=== PATIENT | female | born 1975 | race Caucasian/White ===

== ENCOUNTER 2017-03-20 21:22 | Emergency (ER) | payer MEDICAID ==
[2017-03-20 21:31] VITALS: BP 162/87
[2017-03-20] MEDS ORDERED: ASPIRIN 81 MG TABLET, CHEWABLE PO ONE (21:32)
--- NOTE | 2017-03-21 07:53 | EKG REPORT ---
SEVERITY:- BORDERLINE ECG - SINUS RHYTHM PROBABLE LEFT ATRIAL ABNORMALITY : Confirmed by: Main Cardenas MD 21-Mar-2017 07:52:38
== END 2017-03-20 22:39 | disposition left against medical advice (07) ==
LOC: ER 21:22
DX: Z53.21 Procedure and treatment not carried out due to patient leaving prior to being seen by health care provider (principal)
CPT/HCPCS: 93005; 93010

== ENCOUNTER 2017-05-05 18:03 | Emergency (ER) | payer MEDICAID ==
[2017-05-05] MEDS ORDERED: HYDROCODONE/ACETAMINOPHEN 5-325 MG 6 TAB/DSPK PO PRN (19:04)
[2017-05-05] MEDS ORDERED: HYDROCODONE/ACETAMINOPHEN 5-325 MG TABLET PO ONE (19:04)
[2017-05-05] MEDS ORDERED: CLINDAMYCIN HCL 150 MG CAPSULE PO ONE (19:04)
--- NOTE | 2017-05-05 19:06 | ER Document Report ---
HPI - HPI Patient complains to provider of: mouth pain, gum swelling Onset: Yesterday Onset/Duration: Gradual Quality of pain: Throbbing Severity: Moderate Pain Level: 4 Context: Patient states she had a knot on the left upper roof of her mouth which has now spread down around her back molars. Gums are swollen and painful. Patient states she saw a dentist a few months ago and her teeth were okay. Patient does admit to eating popcorn and not sure if she got something up underneath the gum. Patient noticed her left cheek beginning to swell today. Associated Symptoms: None Exacerbated by: Food Relieved by: Denies Similar symptoms previously: No Recently seen / treated by doctor: No - ROS ROS below otherwise negative: Yes Systems Reviewed and Negative: Yes All other systems reviewed and negative - CONSTITUTIONAL Constitutional: DENIES: Fever - EENT EENT: DENIES: Congestion - NEURO Neurology: DENIES: Headache - CARDIOVASCULAR Cardiovascular: DENIES: Chest pain - RESPIRATORY Respiratory: DENIES: Trouble Breathing - GASTROINTESTINAL Gastrointestinal: DENIES: Abdominal Pain - URINARY Urinary: DENIES: Dysuria - REPRODUCTIVE Reproductive: DENIES: : - MUSCULOSKELETAL Musculoskeletal: DENIES: Extremity pain - DERM Skin Color: Normal, Ethan Skin Problems: None Past Medical History - General Information source: Patient - Social History Smoking Status: Current Every Day Smoker Cigarette use (# per day): Yes Frequency of alcohol use: None Drug Abuse: None Lives with: Family Family History: CAD, CVA, DM, Hyperlipidemia, Hypertension, Malignancy Pulmonary Medical History: Reports: Hx Asthma - LAST ATTACK 2012 Malignancy Medical History: Reports: Hx Cervical Cancer, Hx Ovarian Cancer Musculoskeltal Medical History: Reports Hx Arthritis - hands, left knee, Reports Hx Musculoskeletal Trauma Traumatic Medical History: Reports: Hx Fractures Past Surgical History: Reports: Hx Section - 3, Hx Hysterectomy, Hx Orthopedic Surgery - Immunizations Immunizations up to date: Yes Hx Diphtheria, Pertussis, Tetanus Vaccination: Yes Vertical Provider Document - CONSTITUTIONAL Agree With Documented VS: Yes Exam Limitations: No Limitations General Appearance: WD/WN, No Apparent Distress - INFECTION CONTROL TRAVEL OUTSIDE OF THE [place] IN LAST 30 DAYS: No - HEENT HEENT: Atraumatic, Normal ENT Exam, Normocephalic Mouth Diagram: 1 - swelling, no obvious decay noted. mild Erythema to gums Notes: Mild edema noted to left cheek, no erythema. - NECK Neck: Normal Inspection, Supple - RESPIRATORY Respiratory: Breath Sounds Normal, No Respiratory Distress O2 Sat by Pulse Oximetry: 100 - CARDIOVASCULAR Cardiovascular: Regular Rate, Regular Rhythm - MUSCULOSKELETAL/EXTREMETIES Musculoskeletal/Extremeties: YOKASTA MEAD - NEURO Level of Consciousness: Awake, Alert, Appropriate - DERM Integumentary: Warm, Dry Course - Vital Signs Vital signs: Temp Pulse Resp BP Pulse Ox 98.4 F 81 18 121/74 100 05/05/17 18:33 05/05/17 18:33 05/05/17 18:33 05/05/17 18:33 05/05/17 18:33 Discharge - Discharge Clinical Impression: Mouth pain, Swelling of gums Condition: Good Disposition: HOME, SELF-CARE Additional Instructions: take All meds as prescribed OTC ibuprofen 3 times a day as needed for pain floss your teeth to see if anything might be up underneath her gums causing the pain and swelling follow Up with your dentist if not better in 2-3 days earlier if worsens return as needed Prescriptions: Clindamycin HCl 300 mg PO QID #28 capsule
[2017-05-05 19:36] VITALS: BP 108/57
== END 2017-05-05 19:36 | disposition home or self-care (01) ==
LOC: ER 18:03
DX: K13.79 Other lesions of oral mucosa (principal); K06.8 Other specified disorders of gingiva and edentulous alveolar ridge; L53.9 Erythematous condition, unspecified; F17.210 Nicotine dependence, cigarettes, uncomplicated; J45.909 Unspecified asthma, uncomplicated; Z85.41 Personal history of malignant neoplasm of cervix uteri; Z85.43 Personal history of malignant neoplasm of ovary
CPT/HCPCS: 99282; J3490

== ENCOUNTER 2017-06-24 08:38 | Day surgery (SDC) | payer MEDICAID ==
[~2017-06-24 08:38] MED LIST: DIPHENHYDRAMINE HCL 50 MG/ML VIAL ONE; EPINEPHRINE INJ 1 MG/10 ML DISP.SYRIN ONE; FLUMAZENIL INJ 0.5 MG/5 ML VIAL IV ONE; GLUCAGON,HUMAN RECOMB 1 MG INJ ONE; NALOXONE HCL INJ/PF 0.4 MG/1 ML SDV ONE; ONDANSETRON HCL INJ/PF 4 MG/2 ML SDV ONE
[2017-06-24] MEDS: MIDAZOLAM 2 MG/2 ML INJ ONE ×4 (08:51→09:04)
[2017-06-24] MEDS: FENTANYL CITRATE INJ/PF 100 MCG/2 ML AMPUL ONE ×5 (08:53→09:05)
--- NOTE | 2017-06-24 09:13 | Operative Report ---
Operative Report DATE OF SURGERY: 06/24/17 Operative Report: The risks benefits and alternatives of the procedure explained to the patient in detail and informed consent is obtained.A GIF Olympus video scope was inserted into the patient's mouth and hypopharynx, the esophagus is identified intubated and insufflated, the scope was then advanced through the esophagus stomach and duodenum, retroflexion maneuver is done, the esophagus stomach and first and second portions of the duodenum examined PREOPERATIVE DIAGNOSIS: Nausea vomiting, epigastric pain POSTOPERATIVE DIAGNOSIS: Esophagitis, gastritis, duodenitis. Biopsies obtained to rule out for Helicobacter pylori OPERATION: EGD with biopsy SURGEON: RIYA CHANDLER ANESTHESIA: Moderate Sedation - 8 mg of Versed, 200 mcg of fentanyl. Conscious sedation monitoring time 30 minutes. TISSUE REMOVED OR ALTERED: Gastric specimen obtained COMPLICATIONS: None. ESTIMATED BLOOD LOSS: None. INTRAOPERATIVE FINDINGS: As described above. PROCEDURE: Patient tolerated the procedure well. No immediate postprocedure complications are noted. Patient discharged in good condition. Discharge date 06/24/2017. Discharge diet: Regular. Discharge activity: Regular. 2-3 week follow-up to discuss findings. Patient is instructed to call the office or proceed to the emergency room should there be any further problems or questions. We will wait on pathology.
[2017-06-24 10:26] VITALS: BP 97/57
== END 2017-06-24 10:20 | disposition home or self-care (01) ==
LOC: END 08:38
PROVIDERS: ATTEND Internal Medicine Gastroenterology
PROC: 0DB68ZX Excision of Stomach, Via Natural or Artificial Opening Endoscopic, Diagnostic (ICD-10-PCS; principal; 2017-06-24 09:00)
DX: K29.50 Unspecified chronic gastritis without bleeding (principal); B96.81 Helicobacter pylori [H. pylori] as the cause of diseases classified elsewhere; F17.210 Nicotine dependence, cigarettes, uncomplicated; D64.9 Anemia, unspecified; J45.909 Unspecified asthma, uncomplicated; K29.80 Duodenitis without bleeding; K21.0 Gastro-esophageal reflux disease with esophagitis; I10 Essential (primary) hypertension; Z85.41 Personal history of malignant neoplasm of cervix uteri; Z79.899 Other long term (current) drug therapy; Z88.1 Allergy status to other antibiotic agents; Z88.2 Allergy status to sulfonamides; Z88.5 Allergy status to narcotic agent; Z86.010 Personal history of colon polyps
CPT/HCPCS: 43239; 88342 ×2; 88305 ×2; J2250; J3010; J2405; J0171; J1200; J1610; J2310; J3490

== ENCOUNTER → 2017-06-25 | Outpatient (CLI) | payer MEDICAID ==
--- NOTE | 2017-06-25 12:42 | RADIOLOGY REPORT (SQ) ---
EXAM DESCRIPTION: U/S ABDOMEN COMPLETE W/O DOP COMPLETED DATE/TIME: 06/25/2017 12:09 pm REASON FOR STUDY: N/V (R11.2) R10.11 RIGHT UPPER QUADRANT PAIN R11.2 NAUSEA WITH VOMITING, UNSPECI FIED COMPARISON: CT abdomen pelvis 01/09/2016 TECHNIQUE: Dynamic and static grayscale images acquired of the abdomen and recorded on PACS. Additio nal selected color Doppler and spectral images recorded. LIMITATIONS: None. FINDINGS: PANCREAS: Midline pancreas unremarkable. LIVER: No masses. Echotexture normal. LIVER VASCULATURE: Normal directional flow of the main portal vein and hepatic veins. GALLBLADDER: No stones. Normal wall thickness. No pericholecystic fluid. ULTRASOUND-DETECTED ROBLES'S SIGN: Negative. INTRAHEPATIC DUCTS AND COMMON DUCT: CBD and intrahepatic ducts normal caliber. No filling defects. INFERIOR VENA CAVA: Normal flow. AORTA: No aneurysm. RIGHT KIDNEY: Normal size. Normal echogenicity. No solid or suspicious masses. No hydronephros is. No calcifications. LEFT KIDNEY: Normal size. Normal echogenicity. No solid or suspicious masses. No hydronephrosi s. No calcifications. SPLEEN: Normal size. No solid masses. PERITONEAL AND PLEURAL SPACES: No ascites or effusions. OTHER: No other significant finding. IMPRESSION: NORMAL ABDOMINAL ULTRASOUND. TECHNICAL DOCUMENTATION: JOB ID: [id number] [employer]- All Rights Reserved
== END ==
LOC: RAD 10:39
PROVIDERS: ATTEND Internal Medicine Gastroenterology
DX: R11.2 Nausea with vomiting, unspecified (principal)
CPT/HCPCS: 76700

== ENCOUNTER → 2017-06-29 | Outpatient (CLI) | payer MEDICAID ==
--- NOTE | 2017-06-29 13:17 | RADIOLOGY REPORT (SQ) ---
EXAM DESCRIPTION: NM HIDA SCAN WITH CCK COMPLETED DATE/TIME: 06/29/2017 1:07 pm REASON FOR STUDY: RUQ PAIN/NAUSEA WITH VOMITING, UNSPECIFIED R10.11 RIGHT UPPER QUADRANT PAIN R11.2 NAUSEA WITH VOMITING, UNSPECIFIED COMPARISON: None. RADIONUCLIDE AND DOSE: DOSAGE RADIONUCLIDE: 5 millicuries Tc99m Mebrofenin. DOSAGE CCK: 1.5 micrograms. DOSAGE MORPHINE: Not required. The route of agent administration: Intravenous TECHNIQUE: Serial imaging right upper quadrant up to 60 minutes following injection of radionuclide. CCK injected after gallbladder visualized. LIMITATIONS: None. FINDINGS: LIVER: Normal visualization without areas of photopenia. INTRAHEPATIC BILE DUCTS: Normal size and no delay in visualization. COMMON BILE DUCT: Normal without dilatation. GALLBLADDER: Normal visualization. Calculated ejection fraction of 75.3%. Normal range is greater than 35%. PHYSICAL RESPONSE: Patients presenting complaint was reproduced. OTHER: No other significant finding. IMPRESSION: NORMAL STUDY WITHOUT CYSTIC OR COMMON DUCT OBSTRUCTION. NORMAL GALLBLADDER EJECTION FRA CTION. NO EVIDENCE FOR BILIARY DYSKINESIS. TECHNICAL DOCUMENTATION: JOB ID: [id number] [employer]- All Rights Reserved
== END ==
LOC: RAD 10:37
PROVIDERS: ATTEND Internal Medicine Gastroenterology
DX: R10.11 Right upper quadrant pain (principal); R11.2 Nausea with vomiting, unspecified
CPT/HCPCS: 78227; A9537; Q9969; J2805

== ENCOUNTER 2017-07-13 11:52 | Emergency (ER) | payer MEDICAID ==
[2017-07-13] MEDS ORDERED: NORMAL SALINE 1000 ML 1,000 ML IV PRN (12:07)
--- NOTE | 2017-07-13 12:09 | ER Document Report ---
ED Medical Screen (RME) - General Chief Complaint: Abdominal Pain Stated Complaint: ABDOMINAL PAIN Time Seen by Provider: 07/13/17 12:06 Notes: Patient states that she has had 3 months of abdominal pain. She states she was recently scoped as well as had a HIDA scan. She states that she was told a HIDA scan was positive and she has been referred to a surgeon on July 17. She also states that she tested positive for H. pylori. Patient states she saw her primary care physician today, Dr. Fozia Yun. She states that Dr. Yun was concerned that she may have appendicitis and referred her to the emergency department. Patient states that she was told when she had her hysterectomy that they also took her appendix out. Patient states she is still having pain and vomiting. TRAVEL OUTSIDE OF THE [place] IN LAST 30 DAYS: No - Related Data Allergies/Adverse Reactions: amoxicillin trihydrate [From Augmentin] Allergy (Severe, Verified 07/13/17 11:58 ) Anaphylaxis codeine [Codeine] Allergy (Severe, Verified 07/13/17 11:58) Anaphylaxis oxycodone [Oxycodone] Allergy (Severe, Verified 07/13/17 11:58) Anaphylaxis Potassium Clavulanate * [From Augmentin] Allergy (Severe, Verified 07/13/17 11: 58) Anaphylaxis Sulfa (Sulfonamide Antibiotics) Allergy (Severe, Verified 07/13/17 11:58) RASH TONGUE SWELLS Past Medical History - Social History Chew tobacco use (# tins/day): No Frequency of alcohol use: None Drug Abuse: None - Past Medical History Cardiac Medical History: Denies: Hx Coronary Artery Disease, Hx Heart Attack, Hx Hypertension Pulmonary Medical History: Reports: Hx Asthma - LAST ATTACK 2011 Denies: Hx Bronchitis, Hx COPD, Hx Pneumonia Neurological Medical History: Denies: Hx Cerebrovascular Accident, Hx Seizures Renal/ Medical History: Denies: Hx Peritoneal Dialysis Malignancy Medical History: Reports: Hx Cervical Cancer, Hx Ovarian Cancer Musculoskeltal Medical History: Reports Hx Arthritis - hands, left knee, Reports Hx Musculoskeletal Trauma Traumatic Medical History: Reports: Hx Fractures Past Surgical History: Reports: Hx Section - 3, Hx Hysterectomy, Hx Orthopedic Surgery - Immunizations Immunizations up to date: Yes Hx Diphtheria, Pertussis, Tetanus Vaccination: Yes Physical Exam - Vital signs Vitals: Temp Pulse Resp BP Pulse Ox 98.2 F 95 18 136/80 H 98 07/13/17 11:55 07/13/17 11:55 07/13/17 11:55 07/13/17 11:55 07/13/17 11:55 Course - Vital Signs Vital signs: Temp Pulse Resp BP Pulse Ox 98.2 F 95 18 136/80 H 98 07/13/17 11:55 07/13/17 11:55 07/13/17 11:55 07/13/17 11:55 07/13/17 11:55
[2017-07-13 12:36] LABS: ABSOLUTE BASOPHILS # (AUTO) 0.1 10^3/uL (0.0-0.2); ABSOLUTE EOSINOPHILS # (AUTO) 0.4 10^3/uL (0.0-0.6); ABSOLUTE LYMPHOCYTES (AUTO) 2.5 10^3/uL (0.5-4.7); ABSOLUTE MONOCYTES (AUTO) 0.5 10^3/uL (0.1-1.4); ABSOLUTE NEUT (AUTO) 6.2 10^3/uL (1.7-8.2); BASOPHILS % (AUTO) 1.1 % (0-2); EOSINOPHILS % (AUTO) 4.1 % (0-6); HEMATOCRIT 43.2 % (36.0-47.0); HEMOGLOBIN 14.9 g/dL (12.0-15.5); HGB HCT DIFFERENCE 1.5; LYMPHOCYTES % (AUTO) 25.5 % (13-45); MEAN CORPUSCULAR HEMOGLOBIN 31.1 pg (27.0-33.4); MEAN CORPUSCULAR HGB CONC 34.5 g/dL (32.0-36.0); MEAN CORPUSCULAR VOLUME 90 fl (80-97); MONOCYTES % (AUTO) 5.5 % (3-13); RED BLOOD COUNT 4.79 10^6/uL (3.72-5.28); RED CELL DISTRIBUTION WIDTH 14.2 % (11.5-14.0); SEGMENTED NEUTROPHILS % (AUTO) 63.8 % (42-78); WHITE BLOOD COUNT 9.7 10^3/uL (4.0-10.5)
[2017-07-13 12:49] LABS: APPEARANCE,URINE CLEAR; BILIRUBIN,URINE NEGATIVE (NEGATIVE); GLUCOSE, URINE NEGATIVE (NEGATIVE); KETONES,URINE NEGATIVE (NEGATIVE); LEUKOCYTE ESTERASE,URINE NEGATIVE (NEGATIVE); NITRITE,URINE NEGATIVE (NEGATIVE); PROTEIN,URINE NEGATIVE (NEGATIVE); URINE SPECIFIC GRAVITY 1.004; UROBILINOGEN,URINE NEGATIVE mg/dL (<2.0)
--- NOTE | 2017-07-13 12:54 | ER Document Report ---
ED GI/ - General TRAVEL OUTSIDE OF THE [place] IN LAST 30 DAYS: No - HPI Patient complains to provider of: Abdominal pain Associated symptoms: Other - see aobve <NOE HAMMER - Last Filed: 07/13/17 12:59> <MT WHITE - Last Filed: 07/13/17 16:27> - General Chief Complaint: Abdominal Pain Stated Complaint: ABDOMINAL PAIN Time Seen by Provider: 07/13/17 12:06 Notes: Patient is a 41 year old female who presents to the ED with a 3 month history of abdominal pain and swelling. Patient is being treated for H Pylori, she has has a scope done and positive HIDA scan. Patient has been referred to a surgeon on July 17. Patient was seen by her PCP today for worsening and persistent abdominal pain and was sent to the ED with concerns for appendicitis. Patient had hysterectomy and she was told they took her appendix at that same time. Patient is suppose to have her gall bladder removed. Patient adds that she is also nauseous and has been vomiting. She states they want to put her on phenergen. After reviewing patients radiology results in her records both an ultrasound and HIDA scan were negative. (NOE HAMMER) - Related Data Allergies/Adverse Reactions: amoxicillin trihydrate [From Augmentin] Allergy (Severe, Verified 07/13/17 11:58 ) Anaphylaxis codeine [Codeine] Allergy (Severe, Verified 07/13/17 11:58) Anaphylaxis oxycodone [Oxycodone] Allergy (Severe, Verified 07/13/17 11:58) Anaphylaxis Potassium Clavulanate * [From Augmentin] Allergy (Severe, Verified 07/13/17 11: 58) Anaphylaxis Sulfa (Sulfonamide Antibiotics) Allergy (Severe, Verified 07/13/17 11:58) RASH TONGUE SWELLS Past Medical History - General Information source: Patient - Social History Smoking Status: Current Every Day Smoker Chew tobacco use (# tins/day): No Frequency of alcohol use: None Drug Abuse: None Family History: CAD, CVA, DM, Hyperlipidemia, Hypertension, Malignancy Pulmonary Medical History: Reports: Hx Asthma - LAST ATTACK 2011 Renal/ Medical History: Denies: Hx Peritoneal Dialysis Malignancy Medical History: Reports: Hx Cervical Cancer, Hx Ovarian Cancer Musculoskeltal Medical History: Reports Hx Arthritis - hands, left knee, Reports Hx Musculoskeletal Trauma Psychiatric Medical History: Reports: Hx Anxiety, Hx Depression Traumatic Medical History: Reports: Hx Fractures Past Surgical History: Reports: Hx Section - 3, Hx Hysterectomy, Hx Orthopedic Surgery - Immunizations Immunizations up to date: Yes Hx Diphtheria, Pertussis, Tetanus Vaccination: Yes <NOE HAMMER - Last Filed: 07/13/17 12:59> Review of Systems - Review of Systems Constitutional: No symptoms reported EENT: No symptoms reported Cardiovascular: No symptoms reported Respiratory: No symptoms reported Gastrointestinal: See HPI, Abdominal pain Genitourinary: No symptoms reported Female Genitourinary: No symptoms reported Musculoskeletal: No symptoms reported Skin: No symptoms reported Hematologic/Lymphatic: No symptoms reported Neurological/Psychological: No symptoms reported <CARRINGTON HAMMERANDRA - Last Filed: 07/13/17 12:59> Physical Exam - General General appearance: Alert - HEENT Head: Normocephalic, Atraumatic Eyes: Normal Extraocular movements intact: Yes Pupils: PERRL - Respiratory Respiratory status: No respiratory distress Breath sounds: Normal - Cardiovascular Rhythm: Regular Heart sounds: Normal auscultation Murmur: No - Abdominal Inspection: Normal Distension: No distension Bowel sounds: Hypoactive - markedly decreased Tenderness: Tender - RLQ - Back Back: Normal - Extremities General upper extremity: Normal inspection. No: Normal ROM General lower extremity: Normal inspection, Normal ROM - Neurological Neuro grossly intact: Yes - Psychological Associated symptoms: Normal affect, Normal mood - Skin Skin Temperature: Warm Skin Moisture: Dry Skin Color: Normal <NOE HAMMER - Last Filed: 07/13/17 12:59> - Vital signs Vitals: Temp Pulse Resp BP Pulse Ox 98.2 F 95 18 136/80 H 98 07/13/17 11:55 07/13/17 11:55 07/13/17 11:55 07/13/17 11:55 07/13/17 11:55 Course - Laboratory Result Diagrams: 07/13/17 12:00 07/13/17 12:00 <HARMANNOE - Last Filed: 07/13/17 12:59> - Laboratory Result Diagrams: 07/13/17 12:00 07/13/17 12:00 <MT WHITE - Last Filed: 07/13/17 16:27> - Re-evaluation Re-evalutation: 07/13/17 16:24 The patient's gallbladder ultrasound and HIDA scan from 2-3 weeks ago were both completely normal according to the radiologist's interpretation. The CT scan of the abdomen and pelvis today is unremarkable. The appendix is specifically seen and read as normal. (MT WHITE) - Vital Signs Vital signs: Temp Pulse Resp BP Pulse Ox 98.2 F 95 18 136/80 H 98 07/13/17 11:55 07/13/17 11:55 07/13/17 11:55 07/13/17 11:55 07/13/17 11:55 - Laboratory Laboratory results interpreted by me: 07/13/17 07/13/17 07/13/17 12:00 12:00 12:00 RDW 14.2 H Chloride 109 H Direct Bilirubin 0.5 H AST 49 H Urine Blood SMALL H Discharge <NOE HAMMER - Last Filed: 07/13/17 12:59> <MT WHITE - Last Filed: 07/13/17 16:27> - Discharge Clinical Impression: Right lower quadrant abdominal pain of unknown etiology Condition: Stable Disposition: HOME, SELF-CARE Additional Instructions: Abdominal Pain: There are many causes of abdominal pain. Pain can mean a serious problem requiring surgery (such as appendicitis). It can also be an innocent problem that goes away on its own (such as a viral infection). Often, time must pass to determine the cause of pain. The physician does not feel that hospitalization is necessary, at present. Things may change within the next 24 hours. Call the doctor or come back for re- examination if any problems occur, such as: (1) Pain that becomes more severe, steady, or becomes concentrated in one specific area. Also, pain that is more severe with movement or coughing. (2) Vomiting that persists or becomes more frequent. (3) Blood in the vomitus, urine, or bowel movements. Blood in the stool may have a tarry or black appearance. (4) Shaking chills or fever greater than 100 degrees F. (5) The abdomen becomes more distended or swollen. (6) Bowel movements cease. (7) Failure to improve as expected. Take Tylenol or ibuprofen for pain if needed. Try moist heat to the painful area of your right lower abdomen. Avoid activities such as doing sit ups that would aggravate the pain. Follow-up with your primary care provider and with the general surgeons as planned. RETURN TO THE EMERGENCY ROOM IF ANY NEW OR WORSENING SYMPTOMS. Referrals: YUNIOR GRAY PA-C [Primary Care Provider] - Follow up as needed Marcy Attestation: 07/13/17 16:27 I personally performed the services described in the documentation, reviewed and edited the documentation which was dictated to the scribe in my presence, and it accurately records my words and actions. (MT WHITE) Scribe Documentation - Scribe Written by Marcy:: marcy Castro, 07/13/2017, [id number] acting as scribe for :: Dmitriy <NOE HAMMER - Last Filed: 07/13/17 12:59>
[2017-07-13 13:02] LABS: ALANINE AMINOTRANSFERASE 18 U/L (9-52); ALBUMIN 4.5 g/dL (3.5-5.0); ALKALINE PHOSPHATASE 90 U/L (38-126); ANION GAP 10 (5-19); ASPARTATE AMINO TRANSFERASE 49 U/L (14-36); BILIRUBIN,DIRECT 0.5 mg/dL (0.0-0.4); BILIRUBIN,TOTAL 0.5 mg/dL (0.2-1.3); BLOOD UREA NITROGEN 11 mg/dL (7-20); CALCIUM 9.9 mg/dL (8.4-10.2); CARBON DIOXIDE 23 mmol/L (22-30); CHLORIDE 109 mmol/L (98-107); CREATININE RESULT 0.73 mg/dL (0.52-1.25); GLUCOSE 84 mg/dL (75-110); LIPASE 118.4 U/L (23-300); SODIUM 141.6 mmol/L (137-145); TOTAL PROTEIN 7.6 g/dL (6.3-8.2)
--- NOTE | 2017-07-13 16:11 | RADIOLOGY REPORT (SQ) ---
EXAM DESCRIPTION: CT ABD/PELVIS WITH IV ORAL COMPLETED DATE/TIME: 07/13/2017 4:01 pm REASON FOR STUDY: RLQ abd pain s/p ROCIO, +Hpylori COMPARISON: 01/09/2016 TECHNIQUE: CT scan of the abdomen and pelvis performed with intravenous and oral contrast using ross oswaldo scanning technique with dynamic intravenous contrast injection. Images reviewed with lung, soft t issue, and bone windows. Reconstructed coronal and sagittal MPR images reviewed. Delayed images for e valuation of the urinary system also acquired. All images stored on PACS. All CT scanners at this facility use dose modulation, iterative reconstruction, and/or weight based d osing when appropriate to reduce radiation dose to as low as reasonably achievable (ALARA). [facility]: Dose Right [facility]: CareDose [facility]: Dose Right [facility]: Teradose 4D [facility]: AudioMicro CONTRAST TYPE AND DOSE: contrast/concentration: Isovue 370.00 mg/ml; Total Contrast Delivered: 79.0 ml; Total Saline Delivered: 67.6 ml RENAL FUNCTION: GFR > 60. RADIATION DOSE: Up-to-date CT equipment and radiation dose reduction techniques were employed. CTDIv ol: NaN - NaN mGy. DLP: 0 mGy-cm.. LIMITATIONS: None. FINDINGS: LOWER CHEST: No significant findings. No nodules or infiltrates. LIVER: Normal size. Mild steatosis. No masses. No dilated ducts. SPLEEN: Normal size. No focal lesions. PANCREAS: No masses. No significant calcifications. No adjacent inflammation or peripancreatic fluid collections. Pancreatic duct not dilated. GALLBLADDER: No identified stones by CT criteria. No inflammatory changes to suggest cholecystitis. ADRENAL GLANDS: No significant masses or asymmetry. RIGHT KIDNEY AND URETER: No solid masses. No significant calcification. No hydronephrosis or hydroure ter. LEFT KIDNEY AND URETER: No solid masses. No significant calcification. No hydronephrosis or hydrouret er. AORTA AND VESSELS: No aneurysm. No dissection. Renal arteries, SMA, celiac without stenosis. RETROPERITONEUM: No retroperitoneal adenopathy, hemorrhage or masses. BOWEL AND PERITONEAL CAVITY: No obstruction. No visualized masses. No free fluid. No inflammatory ch anges or thickening of bowel wall. APPENDIX: Normal. PELVIS: No significant masses. Normal bladder. No free fluid. ABDOMINAL WALL: No significant hernia. BONES: No significant or acute findings. OTHER: No other significant finding. IMPRESSION: No acute abnormality in the abdomen or pelvis. TECHNICAL DOCUMENTATION: JOB ID: [id number] Quality ID # [id number]: Final reports with documentation of one or more dose reduction techniques (e.g., Au tomated exposure control, adjustment of the mA and/or kV according to patient size, use of iterative reconstruction technique) 2010 [employer]- All Rights Reserved
[2017-07-13 16:37] VITALS: BP 109/51
== END 2017-07-13 16:49 | disposition home or self-care (01) ==
LOC: ER 11:52
DX: R10.31 Right lower quadrant pain (principal); A04.8 Other specified bacterial intestinal infections; R11.2 Nausea with vomiting, unspecified; J45.909 Unspecified asthma, uncomplicated; Z90.710 Acquired absence of both cervix and uterus; Z85.41 Personal history of malignant neoplasm of cervix uteri; Z85.43 Personal history of malignant neoplasm of ovary; Z88.2 Allergy status to sulfonamides; Z87.892 Personal history of anaphylaxis; Z88.0 Allergy status to penicillin; Z88.5 Allergy status to narcotic agent
CPT/HCPCS: 99284; 96360; 36415; 83690; 85025; 80053; 81001; 74177; J7030

== ENCOUNTER 2017-11-11 20:47 | Emergency (ER) | payer MEDICAID ==
--- NOTE | 2017-11-11 22:43 | ER Document Report ---
ED General - General Chief Complaint: Swallowed Foreign Body Stated Complaint: POSSIBLE FOREIGN OBJECT IN THROAT Time Seen by Provider: 11/11/17 21:59 Notes: Patient is a 41-year-old female presents with complaint of pain in her throat. Patient says that she swallowed a turkey bone yesterday while eating. Is been hurting ever since. She saw her doctor told her to eat bread and peanut butter. She says that she cannot swallow if she moisten the bread and peanut butter and she still has pain in over her throat. She points to her Clarinex is location of pain. No spitting up blood. No vomiting blood. No abdominal pain. No chest pain. No other complaints at this time. She is a smoker. TRAVEL OUTSIDE OF THE [place] IN LAST 30 DAYS: No - Related Data Allergies/Adverse Reactions: amoxicillin trihydrate [From Augmentin] Allergy (Severe, Verified 07/13/17 11:58 ) Anaphylaxis codeine [Codeine] Allergy (Severe, Verified 07/13/17 11:58) Anaphylaxis oxycodone [Oxycodone] Allergy (Severe, Verified 07/13/17 11:58) Anaphylaxis Potassium Clavulanate * [From Augmentin] Allergy (Severe, Verified 07/13/17 11: 58) Anaphylaxis Sulfa (Sulfonamide Antibiotics) Allergy (Severe, Verified 07/13/17 11:58) RASH TONGUE SWELLS Past Medical History - Social History Smoking Status: Current Every Day Smoker Frequency of alcohol use: None Drug Abuse: None Family History: CAD, CVA, DM, Hyperlipidemia, Hypertension, Malignancy Patient has suicidal ideation: No Patient has homicidal ideation: No - Past Medical History Cardiac Medical History: Denies: Hx Coronary Artery Disease, Hx Heart Attack, Hx Hypertension Pulmonary Medical History: Reports: Hx Asthma - LAST ATTACK 2011 Denies: Hx Bronchitis, Hx COPD, Hx Pneumonia Neurological Medical History: Denies: Hx Cerebrovascular Accident, Hx Seizures Renal/ Medical History: Denies: Hx Peritoneal Dialysis Malignancy Medical History: Reports: Hx Cervical Cancer, Hx Ovarian Cancer Musculoskeltal Medical History: Reports Hx Arthritis - hands, left knee, Reports Hx Musculoskeletal Trauma Psychiatric Medical History: Reports: Hx Anxiety, Hx Depression Traumatic Medical History: Reports: Hx Fractures Past Surgical History: Reports: Hx Section - 3, Hx Hysterectomy, Hx Orthopedic Surgery - Immunizations Immunizations up to date: Yes Hx Diphtheria, Pertussis, Tetanus Vaccination: Yes Review of Systems - Review of Systems Notes: My Normal Review Basic REVIEW OF SYSTEMS: CONSTITUTIONAL : Denies fever, chills, or sweats. Denies recent illness. EENT: Denies eye, ear, throat, or mouth pain or symptoms. Denies nasal or sinus congestion. CARDIOVASCULAR: Denies chest pain. RESPIRATORY: Denies cough, cold, or chest congestion. Denies shortness of breath, difficulty breathing, or wheezing. GASTROINTESTINAL: Pain near larynx from swallowing possible turkey bone. MUSCULOSKELETAL: Denies neck or back pain or joint pain or swelling. SKIN: Denies rash or skin lesions. NEUROLOGICAL: Denies altered mental status or loss of consciousness. Denies headache. Denies weakness or paralysis or loss of use of either side. Denies problems with gait or speech. Denies sensory or motor loss. ALL OTHER SYSTEMS REVIEWED AND NEGATIVE. Physical Exam - Vital signs Vitals: Temp Pulse Resp BP Pulse Ox 98.6 F 66 18 119/67 98 11/11/17 21:11 11/11/17 21:11 11/11/17 21:11 11/11/17 21:11 11/11/17 21:11 - Notes Notes: General Appearance: Well nourished, alert, cooperative, no acute distress, mild to moderate obvious discomfort. Vitals: reviewed, See vital signs table. Head: no swelling or tenderness to the head Eyes: PERRL, EOMI, Conjuctiva clear Mouth: No decreasd moisture Throat: No tonsillar inflammation, No airway obstruction, Neck: Supple, no neck tenderness, No swelling to neck. Lungs: No wheezing, No rales, No rhonci, No accessory muscle use, good air exchange bilaterally. Heart: Normal rate, Regular rythm, No murmur, no rub Abdomen: Normal BS, soft, No rigidity, No abdominal tenderness, No guarding, no rebound, no abdominal masses, no organomegaly Extremities: strength 5/5 in all extremities, good pulses in all extremities, no swelling or tenderness in the extremities, no edema. Skin: warm, dry, appropriate color, no rash Neuro: speech clear, oriented x 3, normal affect, responds appropriately to questions. Course - Re-evaluation Re-evalutation: 11/12/17 00:21 Patient will be discharged home. CT scans and x-rays are negative for any type of foreign body. She has not been vomiting or spitting up any blood. I will have her follow soft diet and then all upper GI for reevaluation possible endoscopy. I informed her she must return to ER immediately if she feels that she is having worsening difficulty swallowing, fevers, spitting up or coughing up of blood, or if she has any further concerns. Patient agrees with plan and will be discharged home. Dictation of this chart was performed using voice recognition software; therefore, there may be some unintended grammatical errors. - Vital Signs Vital signs: Temp Pulse Resp BP Pulse Ox 98.6 F 66 18 119/67 98 11/11/17 21:11 11/11/17 21:11 11/11/17 21:11 11/11/17 21:11 11/11/17 21:11 Discharge - Discharge Clinical Impression: Foreign body sensation in throat Condition: Good Disposition: HOME, SELF-CARE Additional Instructions: Your CT scan was negative for any foreign body or turkey bone in the throat. You most likely have a scratch to the esophagus. Treatment is to eat soft foods only such as broth and apple sauce for at least one week. Do not drink hot liquids. Follow up with the GI physician for reevaluation and possible endoscopy. Return to the ER immediately if you have vomiting of blood, difficulty swallowing, fevers, or feel that your symptoms are worsening. Referrals: YUNIOR GRAY PA-C [Primary Care Provider] - Follow up as needed RIYA CHANDLER MD [ACTIVE STAFF] - Follow up in 3-5 days AB OWUSU MD [ACTIVE STAFF] - Follow up in 3-5 days NIDIA MONTES MD [ACTIVE STAFF] - Follow up in 3-5 days
--- NOTE | 2017-11-11 22:58 | RADIOLOGY REPORT (SQ) ---
EXAM DESCRIPTION: KUB/ABDOMEN (SINGLE VIEW) COMPLETED DATE/TIME: 11/11/2017 10:22 pm REASON FOR STUDY: swallowed bone COMPARISON: None. NUMBER OF VIEWS: One view. TECHNIQUE: Supine radiographic image of the abdomen acquired. LIMITATIONS: None. FINDINGS: BOWEL GAS PATTERN: Normal bowel gas pattern. No dilated loops. CALCIFICATIONS: No suspicious calcifications. SOFT TISSUES: No gross mass or suggestion of organomegaly. HARDWARE: None in the abdomen. BONES: No acute fracture. No worrisome bone lesions. OTHER: No other significant finding. IMPRESSION: NO RADIOGRAPHIC EVIDENCE FOR ACUTE ABDOMINAL DISEASE. TECHNICAL DOCUMENTATION: JOB ID: [id number] [place]-72 2010 [email or web address]- All Rights Reserved
--- NOTE | 2017-11-11 22:59 | RADIOLOGY REPORT (SQ) ---
EXAM DESCRIPTION: SOFT TISSUE NECK COMPLETED DATE/TIME: 11/11/2017 10:22 pm REASON FOR STUDY: swallowed bone COMPARISON: None. NUMBER OF VIEWS: Two views. TECHNIQUE: AP and lateral radiographic image of the soft tissues of the neck. LIMITATIONS: None. FINDINGS: EPIGLOTTIS: Normal. Contour normal. Aryepiglottic folds normal. PREVERTEBRAL SOFT TISSUES: Normal. No soft tissue swelling. SUBGLOTTIC AREA: Normal. No narrowing. RETROPHARYNGEAL SPACE: Normal. No soft tissue masses. BONES: No significant findings. LUNG APICES: Normal. OTHER: No radiopaque foreign body. No other significant finding. IMPRESSION: NEGATIVE STUDY OF THE SOFT TISSUES OF THE NECK. TECHNICAL DOCUMENTATION: JOB ID: [id number] [place]-72 2010 [email or web address]- All Rights Reserved
--- NOTE | 2017-11-11 23:00 | RADIOLOGY REPORT (SQ) ---
EXAM DESCRIPTION: CHEST SINGLE VIEW COMPLETED DATE/TIME: 11/11/2017 10:22 pm REASON FOR STUDY: swallowed bone COMPARISON: None. EXAM PARAMETERS: NUMBER OF VIEWS: One view. TECHNIQUE: Single frontal radiographic view of the chest acquired. RADIATION DOSE: NA LIMITATIONS: None. FINDINGS: LUNGS AND PLEURA: No opacities, masses or pneumothorax. No pleural effusion. MEDIASTINUM AND HILAR STRUCTURES: No masses. Contour normal. HEART AND VASCULAR STRUCTURES: Heart normal in size. Normal vasculature. BONES: No acute findings. HARDWARE: None in the chest. OTHER: No other significant finding. IMPRESSION: NO ACUTE RADIOGRAPHIC FINDING IN THE CHEST. TECHNICAL DOCUMENTATION: JOB ID: [id number] [place]-72 2010 [employer]- All Rights Reserved
--- NOTE | 2017-11-12 00:14 | RADIOLOGY REPORT (SQ) ---
EXAM DESCRIPTION: CT of the neck soft tissues without contrast CLINICAL HISTORY: Evaluate foreign body. swallowed bone COMPARISON: None Available. TECHNIQUE: CT of the neck soft tissues without IV contrast. FINDINGS: Radiopaque no sign identified. No radiopaque foreign body identified in the oropharynx, hypopharynx, or esophagus. No abnormalities of the orbits or globes. No facial bone fractures identified. Paranasal sinuses and mastoid air cells are well aerated. No abnormalities of the pharyngeal mucosal space, parapharyngeal space, retropharyngeal space. Visualized thyroid gland is unremarkable. No cervical lymphadenopathy. No abnormalities of the parotid or submandibular glands. Visualized intracranial contents are unremarkable. Visualized skull base and cervical spine are unremarkable. Visualized lung apices are clear. No abnormalities of the superior mediastinum identified. DLP: 429.26 mGy-cm IMPRESSION: 1. No radiopaque foreign body identified in the neck soft tissues. This exam was performed according to our departmental dose-optimization program, which includes automated exposure control, adjustment of the mA and/or kV according to patient size and/or use of iterative reconstruction technique.
[2017-11-12 00:41] VITALS: BP 134/75
== END 2017-11-12 00:30 | disposition home or self-care (01) ==
LOC: ER 20:47
DX: R09.89 Other specified symptoms and signs involving the circulatory and respiratory systems (principal); R07.0 Pain in throat; F17.210 Nicotine dependence, cigarettes, uncomplicated; Z90.710 Acquired absence of both cervix and uterus; Z85.41 Personal history of malignant neoplasm of cervix uteri; Z85.43 Personal history of malignant neoplasm of ovary; Z88.0 Allergy status to penicillin; Z88.6 Allergy status to analgesic agent; Z88.2 Allergy status to sulfonamides
CPT/HCPCS: 70360; 70490; 71010; 74000; 99283